=== PATIENT | male | born 1985 | race Caucasian/White ===

== ENCOUNTER 2020-12-02 23:58 | Emergency (ER) | payer OTHER, MEDICAID, SELFPAY ==
--- NOTE | 2020-12-03 00:06 | DI.RAD.S_ITS ---
PROCEDURE: XR HAND LT MIN 3V INDICATIONS: swelling and pain TECHNIQUE: 3 views of the hand(s) acquired. COMPARISON: None. FINDINGS: Bones: No fractures or dislocations. Carpal bones are normally aligned. No suspicious bony lesions. No periosteal reaction or kvng erosive changes. Soft tissues: No suspicious soft tissue calcifications. No soft tissue gas. Extensive soft tissue swelling noted. IMPRESSION: No kvng evidence of osteomyelitis. Plain film radiographs can be insensitive to osteomyelitis during the initial 15 days of the disease process. If there is clinical concern for osteomyelitis, then three-phase nuclear medicine bone scan should be considered for further evaluation. Dictated by: Loretta Busch MD, PhD on 12/03/2020 at 9:23 Approved by: Loretta Busch MD, PhD on 12/03/2020 at 9:23
--- NOTE | 2020-12-03 00:06 | ED_ITS ---
HPI - General Adult General Chief complaint: Extremity Problem,Nontraumatic Stated complaint: left hand swollen and red Time Seen by Provider: 12/02/20 23:59 Source: patient Mode of arrival: Ambulatory Limitations: no limitations History of Present Illness HPI narrative: 35-year-old male here for evaluation of redness and swelling and pain to the back of left hand. States that has been going on for the past coupl e days. He does not remember any specific trauma. No fevers. Has never had anything like this in the past. Has not tried anything for symptoms prior to arrival. Related Data Previous Rx's Medication Instructions Recorded doxycycline hyclate 100 mg PO BID 7 Days #14 tab 12/03/20 Allergies Allergy/AdvReac Type Severity Reaction Status Date / Time No Known Drug Allergies Allergy Verified 12/03/20 00:08 Review of Systems Constitutional Constitutional: Denies fever(s) Musculoskeletal Musculoskeletal: Denies tingling Comments: Pain and swelling back of left hand Integumentary/Breasts Comments: Redness of the skin in the back of the left hand Neurologic Neurologic: Denies tingling Hematologic/Lymphatic On Anticoagulants: No Allergic/Immunologic Allergic/Immunologic: Denies urticaria Patient History Medical History Patient denies medical problems Social History Smoking Status: Current every day smoker Exam Initial Vital Signs Initial Vital Signs: Vital Signs Temperature 98.3 F 12/03/20 00:09 Pulse Rate 105 H 12/03/20 00:09 Respiratory Rate 20 12/03/20 00:09 Blood Pressure 141/82 H 12/03/20 00:09 Pulse Oximetry 96 12/03/20 00:09 Const General: cooperative and comfortable Limitations: mental status not altered HENMT Head: normal to inspection and normocephalic Skin Other: Area of redness involving the back of the left hand in just proximal to the wrist. Also procedure just distal to the MCP joint of the index middle and ring finger. Neuro General: patient alert and patient awake Sensory Exam: no sensory deficits noted Extrem Other: Some limited range of motion to the wrist secondary to the swelling Psych Appearance: grossly normal and well kempt Course Orders Ordered: ED Orders 12/03/20 00:06 XR hand LT min 3V Stat Discontinued Medications Doxycycline Hyclate (Doxycycline Hyclate 100 Mg Tablet) 100 mg PO NOW ONE Stop: 12/03/20 00:22 Last Admin: 12/03/20 00:27 Dose: 100 mg Documented by: KEILY Vital Signs Vital signs: Vital Signs - 8 hr 12/03/20 00:09 12/03/20 00:37 Temperature 98.3 F Pulse Rate 105 H 99 H Respiratory Rate 20 18 Blood Pressure 141/82 H 138/73 Pulse Oximetry 96 96 Medical Decision Making Imaging Data Extremity x-ray #1: Radiologist's Impression: No acute fracture. Diffuse soft tissue swelling MDM Narrative Medical decision making narrative: No fractures on the x-ray. Physical exam is consistent with cellulitis. No physical exam findings concerning for an abscess. Patient is nontoxic appearing. Will treat with antibiotics. First dose given here in the ER. Will send home with a prescription for the remainder which was sent to the pharmacy of his choice. He was given return precautions and follow-up instructions. The area of redness was outlined with a skin marker. Patient expressed understanding Discharge Plan Departure Patient Disposition: Home Clinical Impression: Cellulitis Instructions: DI for Cellulitis -- Adult Activity Restrictions/Additional Instructions: A prescription for antibiotics was electronically transmitted to [facility] in [place]. Start taking them as directed. You can shower like normal. Contact your primary provider for follow-up. Return to the emergency department if the redness starts to extend outside of the line that was drawn here in the ER. Prescriptions: New doxycycline hyclate 100 mg tablet 100 mg PO BID 7 Days Qty: 14 RF: 0
[2020-12-03 00:09] VITALS: BP 141/82; PULSE 105; RESP 20; TEMP 36.8; O2SAT 96; BMI 33.0
[2020-12-03] MEDS: DOXYCYCLINE HYCLATE 100 MG TABLET PO (00:27)
[2020-12-03 00:37] VITALS: BP 138/73; PULSE 99; RESP 18; O2SAT 96
--- NOTE | 2020-12-03 14:36 | PC.NURSE ---
Patient called requesting prescription to be called into [facility] due to power shortage in [place]
== END 2020-12-03 00:40 | disposition home or self-care (01) ==
PROVIDERS: Emergency Provider Emergency Medicine
DX: L03.114 Cellulitis of left upper limb (principal)
CPT/HCPCS: 73130; 99281; 99283

== ENCOUNTER 2020-12-29 15:06 | Emergency (ER) | payer OTHER, MEDICAID, SELFPAY ==
[2020-12-29 15:15] VITALS: BP 136/73; PULSE 103; RESP 22; TEMP 36.7; O2SAT 99
--- NOTE | 2020-12-29 15:51 | ED_ITS ---
HPI - General Adult General Chief complaint: Upper Respiratory Symptoms Stated complaint: SORE THROAT AND FRICTION PISANO ON PENIS Time Seen by Provider: 12/29/20 15:19 Source: patient Mode of arrival: Ambulatory Limitations: no limitations History of Present Illness HPI narrative: Patient is a 35-year-old male. Is otherwise healthy. Here for evaluation of a sore throat that started 2 days ago and sores on his penis that started approximately 3 days ago. Within the past week he did have unprotected intercourse with a female. This is not the 1st time that he has had section of this individual. He only has intercourse with his 1 individual. There was no oral intercourse. Has never had an STD in the past. States he is not concerned about an STD currently. Has not having any fevers. Has not tried anything for symptoms prior to arrival. Related Data Allergies Allergy/AdvReac Type Severity Reaction Status Date / Time No Known Drug Allergies Allergy Verified 12/03/20 00:08 Review of Systems Constitutional Constitutional: Denies fever(s) Eyes Eyes: Denies itchy eyes ENT Ears, Nose, Mouth, and Throat: Reports halitosis, Denies neck mass, Denies neck pain and Reports sore throat Cardiovascular Cardiovascular: Denies chest pain and Denies dyspnea Respiratory Respiratory: Denies dyspnea Gastrointestinal Gastrointestinal: Denies abdominal pain, Denies nausea and Denies vomiting Genitourinary Genitourinary: Denies dysuria, Denies dysuria and Denies testicular pain Genitourinary: Denies dysuria and Denies dysuria Comments: Sores on penis Musculoskeletal Musculoskeletal: Denies arthralgias, Denies myalgias and Denies neck pain Integumentary/Breasts Skin/Breast: Reports lesions (On penis) Neurologic Neurologic: Denies behavioral changes Psychiatric Psychiatric: Denies behavioral changes Hematologic/Lymphatic On Anticoagulants: No Allergic/Immunologic Allergic/Immunologic: Denies urticaria and Denies itchy eyes Patient History Medical History Patient denies medical problems Social History Smoking Status: Current every day smoker Smoking Status: Current every day smoker tobacco type: cigarettes alcohol intake frequency: holidays/special occasions only Substance Use Type: marijuana Exam Initial Vital Signs Initial Vital Signs: Vital Signs Temperature 98.1 F 12/29/20 15:15 Pulse Rate 103 H 12/29/20 15:15 Respiratory Rate 22 12/29/20 15:15 Blood Pressure 136/73 12/29/20 15:15 Pulse Oximetry 99 12/29/20 15:15 Const General: cooperative and comfortable Limitations: mental status not altered HENMT Head: normal to inspection and normocephalic Face and sinus: normal facial exam Mouth: No oral mucosa abnormal Throat: uvula midline, abnormal tonsil bilaterally erythema and exudates and uvular edema Neck Lymphatic: lymphadenopathy Resp Effort & Inspection: normal respiratory effort Cardio Rate: regular rate External: uncircumcised Penis: foreskin retracts, no swelling, ulceration and no vesicles Skin Other: Patient has multiple well-demarcated ulcerations on the tip of his penis and 1 ulceration on the lower abdomen just above his penis. There are no vesicles. Minimal surrounding erythema. He has no erythema on his hands or feet. Extrem General: capillary refill normal Psych Appearance: grossly normal and well kempt Course Orders Ordered: ED Orders 12/29/20 16:00 HSV Culture Without Typing Stat RPR W Reflex to Titer Stat 12/29/20 16:22 Throat Culture Stat Wound Culture and Gram Stain Stat 12/29/20 16:43 Basic Metabolic Panel Stat Complete Blood Count AUTO DIFF Stat HIV 1 & 2 Ab/Ag 4th Gen Combo Stat 12/29/20 17:34 Chlamydia Gonorrhea PCR -URINE Stat Ictotest Urine Stat Urinalysis and Microscopic Stat Urine Culture Stat Discontinued Medications Penicillin G Benzathine (Penicillin G Benzathine 1,200,000 Unit/2 Ml Syringe) 2,400,000 unit IM NOW ONE Stop: 12/29/20 17:11 Last Admin: 12/29/20 17:38 Dose: 2,400,000 unit Documented by: SUKHDEV Vital Signs Vital signs: Vital Signs - 8 hr 12/29/20 15:15 Temperature 98.1 F Pulse Rate 103 H Respiratory Rate 22 Blood Pressure 136/73 Pulse Oximetry 99 Medical Decision Making Lab Data Result diagrams: 12/29/20 16:43 12/29/20 16:43 Labs: Lab Results 12/29/20 12/29/20 12/29/20 Range/Units 16:43 16:43 16:43 WBC 12.4 H (4.5-11.0) X10^3/uL RBC 4.78 (4.5-5.9) X10^6/uL Hgb 14.0 (13.5-17.5) g/dL Hct 42.1 (41-53) % MCV 88.1 (80-100) fL MCH 29.3 (26-34) PG MCHC 33.2 (30-36) % RDW 12.9 (11.6-14.8) % Plt Count 217 (150-400) X10^3/uL Neut % (Auto) 66.7 (50-75) % Lymph % (Auto) 15.7 L (25-40) % [place] % (Auto) 17.2 H (3-14) % Eos % (Auto) 0.1 L (2-4) % Baso % (Auto) 0.3 (0-2) % Neut # (Auto) 8300 H (7465-7834) /uL Lymph # (Auto) 1900 (7099-1341) /uL [place] # (Auto) 2100 H (0-900) /uL Eos # (Auto) 0 (0-450) /uL Baso # (Auto) 0 (0-100) /uL Sodium 133 L (137-145) mmol/L Potassium 4.3 (3.4-5.1) mmol/L Chloride 98 (98-107) mmol/L Carbon Dioxide 32 (22-32) mmol/L BUN 14 (9-20) mg/dL Creatinine 0.85 (0.66-1.25) mg/dL Estimated GFR > 60.0 (>60) mL/min BUN/Creatinine Ratio 16.5 (6-22) Glucose 112 H (70-100) mg/dL Calcium 8.7 (8.4-10.2) mg/dL Urine Color Urine Appearance Urine pH (4.5-8.0) Ur Specific [place] (1.000-1.035) Urine Protein (Negative) Urine Glucose (UA) (Negative) g/dL Urine Ketones (NEGATIVE) Urine Occult Blood (Negative) Urine Nitrate (Negative) Urine Bilirubin (NEGATIVE) Ur Bilirubin Confirm (Negative) Urine Urobilinogen (0.2) E.U./dL Ur Leukocyte Esterase (NEGATIVE) Urine RBC (0-5/HPF) Urine WBC (0-5/HPF) Ur Squamous Epith Cells (0-5/HPF) Urine Bacteria (None) Granular Casts (None) Urine Mucus (Negative) Ur Culture Indicated? HIV 1&2 Ab/P24 Ag 4thGn Negative (NEGATIVE) 12/29/20 Range/Units 17:34 WBC (4.5-11.0) X10^3/uL RBC (4.5-5.9) X10^6/uL Hgb (13.5-17.5) g/dL Hct (41-53) % MCV (80-100) fL MCH (26-34) PG MCHC (30-36) % RDW (11.6-14.8) % Plt Count (150-400) X10^3/uL Neut % (Auto) (50-75) % Lymph % (Auto) (25-40) % [place] % (Auto) (3-14) % Eos % (Auto) (2-4) % Baso % (Auto) (0-2) % Neut # (Auto) (3592-1552) /uL Lymph # (Auto) (5357-3866) /uL [place] # (Auto) (0-900) /uL Eos # (Auto) (0-450) /uL Baso # (Auto) (0-100) /uL Sodium (137-145) mmol/L Potassium (3.4-5.1) mmol/L Chloride (98-107) mmol/L Carbon Dioxide (22-32) mmol/L BUN (9-20) mg/dL Creatinine (0.66-1.25) mg/dL Estimated GFR (>60) mL/min BUN/Creatinine Ratio (6-22) Glucose (70-100) mg/dL Calcium (8.4-10.2) mg/dL Urine Color Yellow Urine Appearance Clear Urine pH 5.5 (4.5-8.0) Ur Specific [place] 1.025 (1.000-1.035) Urine Protein Trace H (Negative) Urine Glucose (UA) Negative (Negative) g/dL Urine Ketones Negative (NEGATIVE) Urine Occult Blood Trace-lysed (Negative) Urine Nitrate Negative (Negative) Urine Bilirubin 2+ H (NEGATIVE) Ur Bilirubin Confirm Negative (Negative) Urine Urobilinogen 1.0 (0.2) E.U./dL Ur Leukocyte Esterase Trace H (NEGATIVE) Urine RBC 0-1/hpf (0-5/HPF) Urine WBC 1-5/hpf (0-5/HPF) Ur Squamous Epith Cells None seen (0-5/HPF) Urine Bacteria Few (2-10) H (None) Granular Casts 5-10/lpf (None) Urine Mucus 2+ H (Negative) Ur Culture Indicated? Specimen cultured HIV 1&2 Ab/P24 Ag 4thGn (NEGATIVE) Point of Care Testing Rapid Strep A Negative Point of care testing: Point of Care Testing Rapid Strep A Negative MDM Narrative Medical decision making narrative: Patient's physical exam today is very consistent with syphilis. He has painful ulcerations located on his penis and also 1 ulceration located on his lower abdomen. There is no surrounding vesicles. I did consider herpes however his exam today is not consistent with that. He has no lesions on his hands or on his feet. Other than his lower abdomen no lesions other than on his penis. He does have tonsillar exudates. H is rapid strep was negative. He has no other mucosal findings. He has no ulcerations in his mouth. Had a discussion with him regarding his symptoms. Informed him of my concern. Cultures of his throat were pending at the time of discharge. His HIV was negative. We also cultured his genitals. Informed her that we will contact him if we needed to change any medications. Did inform him that he needs to abstain from sexual activity until his symptoms are resolved. Patient does not have any problems breathing. He was given return precautions and follow-up instructions. He expressed understanding agreement. Discharge Plan Departure Patient Disposition: Home Clinical Impression: Syphilis Instructions: DI for Syphilis Activity Restrictions/Additional Instructions: Your physical exam today is most consistent with a syphilis like rash. We do have multiple cultures pending and these will result in the next couple days and we will contact you if we need to add any additional antibiotics. You were given shots of penicillin today and that should treat this disease. I highly recommend that you discuss this with your sexual partner. I recommend no sexual contact until all of your symptoms have resolved. I recommend you contact your primary provider for a follow-up. Return to the emergency department for any new or worsening symptoms
--- NOTE | 2020-12-29 16:34 | PC.NURSE ---
lesions, several singular ulcers noted to penis and surrounding area of groin. swabbed/sent for labs.
[2020-12-29 16:58] LABS: Add Manual Diff / Slide Review NO; Basophils Absolute Auto 0 /uL (0-100); Basophils Percent Auto 0.3 % (0-2); Eosinophils Absolute Auto 0 /uL (0-450); Eosinophils Percent Auto 0.1 % (2-4); Hematocrit 42.1 % (41-53); Lymphocytes Absolute Auto 1900 /uL (1100-4500); Lymphocytes Percent Auto 15.7 % (25-40); Mean Corpuscular HGB Conc 33.2 % (30-36); Mean Corpuscular Hemoglobin 29.3 PG (26-34); Mean Corpuscular Volume 88.1 fL (80-100); Monocytes Absolute Auto 2100 /uL (0-900); Monocytes Percent Auto 17.2 % (3-14); Neutrophils Absolute Auto 8300 /uL (1500-7000); Neutrophils Percent Auto 66.7 % (50-75); Platelet Count 217 X10^3/uL (150-400); Red Blood Cell Count 4.78 X10^6/uL (4.5-5.9); Red Cell Distribution Width 12.9 % (11.6-14.8); White Blood Cell Count 12.4 X10^3/uL (4.5-11.0)
[2020-12-29 17:31] LABS: BUN Creatinine Ratio 16.5 (6-22); Blood Urea Nitrogen 14 mg/dL (9-20); Calcium 8.7 mg/dL (8.4-10.2); Carbon Dioxide 32 mmol/L (22-32); Chloride 98 mmol/L (98-107); Estimated Glomerular Filt Rate > 60.0 mL/min (>60); Glucose 112 mg/dL (70-100); HEMOLYSIS < 15 (0-50); Potassium 4.3 mmol/L (3.4-5.1); Sodium 133 mmol/L (137-145)
[2020-12-29] MEDS: PENICILLIN G BENZATHINE 1,200,000 UNIT/2 ML SYRINGE 2400000 UNIT IM (17:38)
[2020-12-29 18:04] LABS: Appearance Urine UA CLEAR; Bilirubin Urine UA 2+ (NEGATIVE); Color Urine UA YELLOW; Glucose Urine UA NEGATIVE (Negative); Ketones Urine UA NEGATIVE (NEGATIVE); Leukocyte Esterase Urine UA TRACE (NEGATIVE); Nitrite Urine UA NEGATIVE (Negative); Occult Blood Urine UA TRACE-LYSED (Negative); Protein Urine UA TRACE (Negative); Specific Gravity Urine UA 1.025 (1.000-1.035); pH Urine UA 5.5 (4.5-8.0)
[2020-12-29 18:12] LABS: Ictotest Urine Negative (Negative)
[2020-12-29 18:13] LABS: RBC Urine 0-1/HPF (0-5/HPF); WBC Urine 1-5/HPF (0-5/HPF)
[2020-12-29 18:14] LABS: Bacteria Urine Few (2-10); Culture Indicated Urine Specimen Cultured; Granular Casts Urine 5-10/LPF; Mucus Urine 2+ (Negative); Squamous Epithelial Cell Urine None Seen (0-5/HPF)
[2020-12-29 18:16] LABS: HIV 1 & 2 Ab/Ag 4th Gen Combo NEGATIVE (NEGATIVE)
[2020-12-29 18:53] VITALS: BP 134/78; PULSE 72; RESP 18; O2SAT 100
[2020-12-29 19:27] LABS: Urine N gonorrhoeae NOT DETECTED
[2020-12-29 19:36] LABS: Urine Chlamydia NOT DETECTED
[2020-12-30 09:06] LABS: RPR Screen Non Reactive (Non Reactive)
[2021-01-01 12:34] LABS: HSV Culture Without Typing Positive (.)
== END 2020-12-29 17:55 | disposition home or self-care (01) ==
PROVIDERS: Emergency Provider Emergency Medicine
DX: A53.9 Syphilis, unspecified (principal); Z11.3 Encounter for screening for infections with a predominantly sexual mode of transmission; J02.9 Acute pharyngitis, unspecified
CPT/HCPCS: 36415; 80048; 81001; 85025; 86592; 87070; 87075; 87077; 87086; 87147; 87205; 87255; 87389; 87491; 87591; 87880; 96372; 99281; 99283; J0561

== ENCOUNTER 2021-08-13 22:37 | Emergency (ER) | payer OTHER, MEDICAID, SELFPAY ==
[2021-08-13 22:52] VITALS: BP 154/95; PULSE 102; RESP 15; TEMP 37.3; O2SAT 99; BMI 33.5
--- NOTE | 2021-08-13 23:29 | PC.NURSE ---
Addendum entered by Yanet Salinas R.N. 08/13/21 23:30: left eye-pH 8 right eye-pH 7 Original Note: right eye-7
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
[2021-08-14 00:04] VITALS: BP 148/87; PULSE 96; O2SAT 98
== END 2021-08-14 00:06 | disposition home or self-care (01) ==
LOC: ED 08-14 00:05
PROVIDERS: Emergency Provider Emergency Medicine
DX: H57.13 Ocular pain, bilateral (principal); Z77.128 Contact with and (suspected) exposure to other hazards in the physical environment
CPT/HCPCS: 99281; 99284

== ENCOUNTER 2023-04-16 03:30 | Emergency (ER) | payer OTHER, MEDICAID, SELFPAY ==
--- NOTE | 2023-04-16 03:33 | ED.GENADULT ---
HPI - General Adult General Chief complaint: Dental/Oral Stated complaint: abscess tooth Time Seen by Provider: 04/16/23 03:32 Source: patient Mode of arrival: Ambulatory Limitations: no limitations History of Present Illness HPI narrative: 38-year-old male who is here for evaluation of 1-2 days of discomfort in his right upper front tooth and also swelling to his right upper front jaw. Has not tried anything for symptoms prior to arrival. Has not seen a dentist. No problems swallowing. Related Data Previous Rx's Medication Instructions Recorded ibuprofen 800 mg tablet 800 mg PO TID PRN pain #30 tabs 04/16/23 penicillin V potassium 500 mg 500 mg PO QID 7 days #28 tabs 04/16/23 tablet Allergies Allergy/AdvReac Type Severity Reaction Status Date / Time No Known Drug Allergies Allergy Verified 12/03/20 00:08 Review of Systems ENT Ears, Nose, Mouth, and Throat: Reports system reviewed and no additional complaints, except as documented Respiratory Respiratory: Reports system reviewed and no additional complaints, except as documented Integumentary/Breasts Skin/Breast: Reports system reviewed and no additional complaints, except as documented Patient History Medical History Patient denies medical problems Social History Smoking Status: Current every day smoker Smoking Status: Current every day smoker tobacco type: cigarettes alcohol intake frequency: holidays/special occasions only Substance Use Type: marijuana Exam Initial Vital Signs Initial Vital Signs: Vital Signs Temperature 98.9 F 04/16/23 03:35 Pulse Rate 102 H 04/16/23 03:35 Respiratory Rate 20 04/16/23 03:35 Blood Pressure 182/114 H 04/16/23 03:35 Pulse Oximetry 99 04/16/23 03:35 Oxygen Delivery Method Room Air 04/16/23 03:35 HENMT Face and sinus: no fluctuance and other (Swelling right upper maxillary region) Teeth and gingiva: poor dentition Throat: posterior oropharynx normal Skin General: no rashes or lesions noted Course Orders Ordered: Discontinued Medications Ibuprofen (Ibuprofen 400 Mg Tablet) 800 mg PO NOW ONE Stop: 04/16/23 03:36 Penicillin V Potassium (Penicillin Vk 250 Mg Tablet) 500 mg PO NOW ONE Stop: 04/16/23 03:37 Vital Signs Vital signs: Vital Signs - 8 hr 04/16/23 03:35 Temperature 98.9 F Pulse Rate 102 H Respiratory Rate 20 Blood Pressure 182/114 H Pulse Oximetry 99 Oxygen Delivery Method Room Air Medical Decision Making MDM Narrative Medical decision making narrative: Patient does have poor dentition. He does have swelling in his right upper maxillary region. No definitive abscess amenable to drainage noted on exam today. Will start the patient on antibiotics. Was given 1st dose here in the emergency department. A prescription was sent to the pharmacy of his choice. He was given return precautions. He expressed understanding and agreement. Discharge Plan Departure Patient Disposition: Home Clinical Impression: Dental abscess Instructions: Tooth Abscess Activity Restrictions/Additional Instructions: I do recommend that you take the antibiotics as directed. It is important that you follow-up with a dentist for definitive treatment. Return to the emergency department for new symptoms. Prescriptions: New penicillin V potassium 500 mg tablet 500 mg PO QID 7 Days Qty: 28 0RF ibuprofen 800 mg tablet 800 mg PO TID PRN (Reason: pain) Qty: 30 0RF Stand Alone Forms: Patient Portal/API
[2023-04-16 03:35] VITALS: BP 182/114; PULSE 102; RESP 20; TEMP 37.2; O2SAT 99
[2023-04-16] MEDS: IBUPROFEN 400 MG TABLET 800 MG PO (03:40)
[2023-04-16] MEDS: PENICILLIN VK 250 MG TABLET 500 MG PO (03:40)
== END 2023-04-16 03:43 | disposition home or self-care (01) ==
PROVIDERS: Emergency Provider Emergency Medicine
DX: K04.7 Periapical abscess without sinus (principal)
CPT/HCPCS: 99283